=== PATIENT | male | born 1945 | race Two or more races ===

== ENCOUNTER → 2016-12-02 | Outpatient (CLI) | payer MEDICARE ==
[~2016-12-02] VITALS: Ht 170.2 cm; Wt 83.0 kg
[~2016-12-02] MED LIST: AMIO200T44 PO; AMLO-511 PO; BACL10TA PO; CITA40TA14 PO; COLC0.6T69 PO; GABA-531 PO; GEMF600T3 PO; HYDR-308 PO; LISI-662 PO; METO-327 PO; METO25 PO; OMEP20 PO; RANI150T7 PO; SIMV-261 PO; SITA100 PO; WARF2 PO; WARF4TAB6 PO
[2016-12-02 14:45] VITALS: BP 126/53
== END | disposition home or self-care (01) ==
LOC: SRCNTR 14:44
PROVIDERS: ATTEND Internal Medicine Cardiovascular Disease
DX: J44.9 Chronic obstructive pulmonary disease, unspecified (principal); I10 Essential (primary) hypertension; I48.0 Paroxysmal atrial fibrillation; E11.9 Type 2 diabetes mellitus without complications; E78.5 Hyperlipidemia, unspecified; M19.90 Unspecified osteoarthritis, unspecified site
CPT/HCPCS: 85610; G0463

== ENCOUNTER → 2016-12-17 | Outpatient (CLI) | payer MEDICARE ==
[2016-12-17 09:59] VITALS: BP 124/60
== END | disposition home or self-care (01) ==
LOC: SRCNTR 09:57
PROVIDERS: ATTEND Internal Medicine Cardiovascular Disease
DX: I48.91 Unspecified atrial fibrillation (principal)
CPT/HCPCS: 85610; G0463

== ENCOUNTER → 2017-01-01 | Outpatient (CLI) | payer MEDICARE ==
[~2017-01-01] VITALS: Ht 167.6 cm; Wt 87.0 kg
[~2017-01-01] MED LIST changes: -SIMV-261 PO; +SIMV40 PO
[2017-01-01 14:15] VITALS: BP 124/54
== END | disposition home or self-care (01) ==
LOC: SRCNTR 14:10
PROVIDERS: ATTEND Internal Medicine Cardiovascular Disease
DX: I10 Essential (primary) hypertension (principal); E11.9 Type 2 diabetes mellitus without complications; E78.5 Hyperlipidemia, unspecified; I48.0 Paroxysmal atrial fibrillation; M19.90 Unspecified osteoarthritis, unspecified site
CPT/HCPCS: 85610; 93005; G0463

== ENCOUNTER → 2017-01-08 | Outpatient (CLI) | payer MEDICARE ==
[~2017-01-08] VITALS: Ht 165.1 cm; Wt 87.0 kg
[~2017-01-08] MED LIST changes: -WARF4TAB6 PO
[2017-01-08 10:43] VITALS: BP 126/51
== END | disposition home or self-care (01) ==
LOC: SRCNTR 10:34
PROVIDERS: ATTEND Hospitalist
DX: I10 Essential (primary) hypertension (principal); E78.5 Hyperlipidemia, unspecified; R94.5 Abnormal results of liver function studies; I48.2 Chronic atrial fibrillation; I48.91 Unspecified atrial fibrillation; E11.65 Type 2 diabetes mellitus with hyperglycemia; F10.10 Alcohol abuse, uncomplicated; G89.29 Other chronic pain; M54.5 Low back pain
CPT/HCPCS: G0463

== ENCOUNTER → 2017-02-13 | Outpatient (CLI) | payer MEDICARE ==
[~2017-02-13] MED LIST changes: +SIMV-261 PO; -SIMV40 PO
[2017-02-13 15:35] LABS: BASOPHILS # (AUTO) 0.07 K/uL (0.00-0.20); BASOPHILS % (AUTO) 1.2 % (0.0-2.0); EOSINOPHILS % (AUTO) 3.72 % (1.0-6.0); HEMATOCRIT 42.2 % (41-53); HEMOGLOBIN 14.1 g/dL (13.5-17.5); LYMPHOCYTES % (AUTO) 17.7 % (22.0-44.0); MEAN CORPUSCULAR HGB CONC 33.3 G/dL (31.0-37.0); MEAN CORPUSCULAR VOLUME 99 fL (80-100); MONOCYTES # (AUTO) 0.5 K/uL (0.1-1.0); MONOCYTES % (AUTO) 9.6 % (2.0-9.0); NEUTROPHILS # (AUTO) 3.6 K/uL (1.8-7.7); NEUTROPHILS % (AUTO) 67.8 % (40.0-70.0); PLATELET COUNT (AUTO) 136 K/uL (150-450); RED BLOOD CELL COUNT(AUTO) 4.27 MIL/uL (4.50-5.90); RED CELL DISTRIBUTION WIDTH 13.1 % (11.5-14.5); WHITE BLOOD COUNT (AUTO) 5.4 K/uL (4.5-11.0)
[2017-02-13 15:52] LABS: ALANINE AMINOTRANSFERASE 27 U/L (12-78); ALBUMIN 3.7 g/dL (3.4-5.0); ANION GAP 7 mmol/L (8-16); ASPARTATE AMINOTRANSFERASE 21 U/L (15-37); BILIRUBIN,TOTAL 0.3 mg/dL (0.1-1.0); CALCIUM, TOTAL 8.4 mg/dL (8.8-10.5); CARBON DIOXIDE 28 mmol/L (22-29); CHLORIDE 105 mmol/L (98-107); CHOL/HDL RATIO 5.8 (4.2-7.3); CREATININE 1.08 mg/dL (0.60-1.30); GLOMERULAR FILTR. RATE CALC > 60 mL/min (>60); POTASSIUM 5.3 mmol/L (3.5-5.1); SODIUM SERUM 140 mmol/L (136-145); TOTAL PROTEIN, SERUM 7.2 g/dL (6.4-8.2); UREA NITROGEN, BLOOD 17 mg/dL (7-18)
[2017-02-13 16:24] LABS: PROSTATE SPECIFIC ANTIGEN 0.48 ng/mL (0.00-4.00)
[2017-02-14 14:48] LABS: HEPATITIS Bs ANTIGEN SCREEN P Negative (Negative); HEPATITIS C AB SCREEN <0.1 s/co ratio (0.0-0.9)
== END | disposition home or self-care (01) ==
LOC: LABPV 13:30
PROVIDERS: ATTEND Hospitalist
DX: Z12.5 Encounter for screening for malignant neoplasm of prostate (principal); I10 Essential (primary) hypertension; E78.5 Hyperlipidemia, unspecified; R94.5 Abnormal results of liver function studies
CPT/HCPCS: 80074; 82271; 84153

== ENCOUNTER → 2017-02-20 | Outpatient (CLI) | payer MEDICARE ==
[~2017-02-20] VITALS: Ht 167.6 cm; Wt 88.0 kg
[~2017-02-20] MED LIST changes: -SIMV-261 PO; +SIMV40 PO
[2017-02-20 10:50] VITALS: BP 156/62
== END | disposition home or self-care (01) ==
LOC: SRCNTR 10:36
PROVIDERS: ATTEND Hospitalist
DX: E11.65 Type 2 diabetes mellitus with hyperglycemia (principal); I10 Essential (primary) hypertension; M19.90 Unspecified osteoarthritis, unspecified site; E78.5 Hyperlipidemia, unspecified; I48.2 Chronic atrial fibrillation; K21.9 Gastro-esophageal reflux disease without esophagitis; F10.10 Alcohol abuse, uncomplicated; G89.29 Other chronic pain; M54.5 Low back pain; E87.5 Hyperkalemia; Z71.41 Alcohol abuse counseling and surveillance of alcoholic
CPT/HCPCS: G0463

== ENCOUNTER → 2017-02-24 | Outpatient (CLI) | payer MEDICARE ==
[~2017-02-24] VITALS: Ht 167.6 cm; Wt 89.5 kg
[~2017-02-24] MED LIST changes: +SIMV-261 PO; -SIMV40 PO
[2017-02-24 14:47] VITALS: BP 128/58
== END | disposition home or self-care (01) ==
LOC: SRCNTR 14:39
PROVIDERS: ATTEND Internal Medicine Cardiovascular Disease
DX: E11.9 Type 2 diabetes mellitus without complications (principal); I10 Essential (primary) hypertension; E78.5 Hyperlipidemia, unspecified; I48.0 Paroxysmal atrial fibrillation; M19.90 Unspecified osteoarthritis, unspecified site
CPT/HCPCS: 85610; G0463

== ENCOUNTER → 2017-02-27 | Outpatient (CLI) | payer MEDICARE ==
[~2017-02-27] MED LIST changes: -SIMV-261 PO; +SIMV40 PO
[2017-02-27 16:03] LABS: ANION GAP 8 mmol/L (8-16); CALCIUM, TOTAL 8.6 mg/dL (8.8-10.5); CARBON DIOXIDE 27 mmol/L (22-29); CHLORIDE 105 mmol/L (98-107); CREATININE 0.98 mg/dL (0.60-1.30); GLOMERULAR FILTR. RATE CALC > 60 mL/min (>60); POTASSIUM 5.1 mmol/L (3.5-5.1); SODIUM SERUM 140 mmol/L (136-145); UREA NITROGEN, BLOOD 17 mg/dL (7-18)
== END | disposition home or self-care (01) ==
LOC: LABPV 14:20
PROVIDERS: ATTEND Hospitalist
DX: E87.5 Hyperkalemia (principal)
CPT/HCPCS: 83735

== ENCOUNTER → 2017-03-09 | Outpatient (CLI) | payer MEDICARE ==
[~2017-03-09] VITALS: Ht 167.6 cm; Wt 89.2 kg
[~2017-03-09] MED LIST changes: +SIMV-261 PO; -SIMV40 PO
[2017-03-09 12:15] VITALS: BP 161/66
== END | disposition home or self-care (01) ==
LOC: SRCNTR 12:12
PROVIDERS: ATTEND Hospitalist
DX: E11.65 Type 2 diabetes mellitus with hyperglycemia (principal); I10 Essential (primary) hypertension; I48.2 Chronic atrial fibrillation; E78.5 Hyperlipidemia, unspecified; M19.90 Unspecified osteoarthritis, unspecified site; G89.29 Other chronic pain; M54.5 Low back pain; K21.9 Gastro-esophageal reflux disease without esophagitis; F10.10 Alcohol abuse, uncomplicated
CPT/HCPCS: G0463

== ENCOUNTER → 2017-03-31 | Outpatient (CLI) | payer MEDICARE ==
[~2017-03-31] VITALS: Ht 167.6 cm; Wt 89.0 kg
[2017-03-31 14:15] VITALS: BP 135/53
== END | disposition home or self-care (01) ==
LOC: SRCNTR 14:10
PROVIDERS: ATTEND Internal Medicine Cardiovascular Disease
DX: E11.9 Type 2 diabetes mellitus without complications (principal); I10 Essential (primary) hypertension; E78.5 Hyperlipidemia, unspecified; I48.0 Paroxysmal atrial fibrillation; M19.90 Unspecified osteoarthritis, unspecified site; Z79.01 Long term (current) use of anticoagulants
CPT/HCPCS: 85610; G0463

== ENCOUNTER → 2017-04-30 | Outpatient (CLI) | payer MEDICARE ==
[~2017-04-30] VITALS: Ht 167.6 cm; Wt 86.0 kg
[2017-04-30 14:07] VITALS: BP 109/49
== END | disposition home or self-care (01) ==
LOC: SRCNTR 14:06
PROVIDERS: ATTEND Internal Medicine Cardiovascular Disease
DX: I10 Essential (primary) hypertension (principal); E11.9 Type 2 diabetes mellitus without complications; E78.5 Hyperlipidemia, unspecified; I48.0 Paroxysmal atrial fibrillation; M19.90 Unspecified osteoarthritis, unspecified site; Z79.01 Long term (current) use of anticoagulants
CPT/HCPCS: G0463

== ENCOUNTER → 2017-06-02 | Outpatient (CLI) | payer MEDICARE ==
[~2017-06-02] VITALS: Ht 167.6 cm; Wt 87.5 kg
[2017-06-02 15:22] VITALS: BP 145/70
== END | disposition home or self-care (01) ==
LOC: SRCNTR 14:29
PROVIDERS: ATTEND Internal Medicine Cardiovascular Disease
DX: I10 Essential (primary) hypertension (principal); E11.9 Type 2 diabetes mellitus without complications; E78.5 Hyperlipidemia, unspecified; M19.90 Unspecified osteoarthritis, unspecified site; I48.0 Paroxysmal atrial fibrillation
CPT/HCPCS: G0463

== ENCOUNTER → 2017-06-08 | Outpatient (CLI) | payer MEDICARE ==
[2017-06-08 13:38] LABS: HEMATOCRIT 41.3 % (41-53); HEMOGLOBIN 13.8 g/dL (13.5-17.5); MEAN CORPUSCULAR HEMOGLOBIN 33.3 pg (26.0-34.0); MEAN CORPUSCULAR HGB CONC 33.5 G/dL (31.0-37.0); MEAN CORPUSCULAR VOLUME 99 fL (80-100); RED BLOOD CELL COUNT(AUTO) 4.15 MIL/uL (4.50-5.90); RED CELL DISTRIBUTION WIDTH 13.9 % (11.5-14.5); WHITE BLOOD COUNT (AUTO) 6.6 K/uL (4.5-11.0)
[2017-06-08 13:39] LABS: BASOPHILS % (AUTO) 0.7 % (0.0-2.0); EOSINOPHILS % (AUTO) 3.3 % (1.0-6.0); LYMPHOCYTES # (AUTO) 1.1 K/uL (1.0-4.8); LYMPHOCYTES % (AUTO) 17.3 % (22.0-44.0); MONOCYTES # (AUTO) 0.7 K/uL (0.1-1.0); MONOCYTES % (AUTO) 10.9 % (2.0-9.0); NEUTROPHILS # (AUTO) 4.5 K/uL (1.8-7.7); NEUTROPHILS % (AUTO) 67.8 % (40.0-70.0); PLATELET COUNT (AUTO) 140 K/uL (150-450)
[2017-06-08 13:45] LABS: HEMOGLOBIN A1C 5.8 % (4.5-6.2)
[2017-06-08 13:59] LABS: ALANINE AMINOTRANSFERASE 31 U/L (12-78); ALBUMIN 3.9 g/dL (3.4-5.0); ANION GAP 9 mmol/L (8-16); ASPARTATE AMINOTRANSFERASE 26 U/L (15-37); BILIRUBIN,TOTAL 0.4 mg/dL (0.1-1.0); CALCIUM, TOTAL 8.6 mg/dL (8.8-10.5); CARBON DIOXIDE 24 mmol/L (22-29); CHLORIDE 103 mmol/L (98-107); CREATININE 1.04 mg/dL (0.60-1.30); GLOMERULAR FILTR. RATE CALC > 60 mL/min (>60); POTASSIUM 5.2 mmol/L (3.5-5.1); SODIUM SERUM 136 mmol/L (136-145); TOTAL PROTEIN, SERUM 7.1 g/dL (6.4-8.2); UREA NITROGEN, BLOOD 22 mg/dL (7-18)
== END | disposition home or self-care (01) ==
LOC: LABPV 10:58
PROVIDERS: ATTEND Hospitalist
DX: E11.9 Type 2 diabetes mellitus without complications (principal); I10 Essential (primary) hypertension
CPT/HCPCS: 83036

== ENCOUNTER → 2017-06-11 | Outpatient (CLI) | payer MEDICARE ==
[~2017-06-11] VITALS: Ht 167.6 cm; Wt 87.0 kg
[2017-06-11 12:32] VITALS: BP 145/61
[2017-06-11 13:41] LABS: GLUCOSE,POINT OF CARE 122 MG/DL (70-110)
== END | disposition home or self-care (01) ==
LOC: SRCNTR 12:21
PROVIDERS: ATTEND Hospitalist
DX: E11.9 Type 2 diabetes mellitus without complications (principal); I48.2 Chronic atrial fibrillation; I10 Essential (primary) hypertension; E78.5 Hyperlipidemia, unspecified; K21.9 Gastro-esophageal reflux disease without esophagitis; G89.29 Other chronic pain; M54.5 Low back pain; M19.90 Unspecified osteoarthritis, unspecified site; F10.10 Alcohol abuse, uncomplicated
CPT/HCPCS: 82962

== ENCOUNTER → 2017-07-02 | Outpatient (CLI) | payer MEDICARE ==
[~2017-07-02] VITALS: Ht 167.6 cm; Wt 85.0 kg
[~2017-07-02] MED LIST changes: +COLC0.6T67 PO; -COLC0.6T69 PO; -METO-327 PO; +METO-416 PO
[2017-07-02 14:35] VITALS: BP 122/50
== END | disposition home or self-care (01) ==
LOC: SRCNTR 14:04
PROVIDERS: ATTEND Internal Medicine Cardiovascular Disease
DX: E11.9 Type 2 diabetes mellitus without complications (principal); E78.5 Hyperlipidemia, unspecified; I10 Essential (primary) hypertension; I48.0 Paroxysmal atrial fibrillation; M19.90 Unspecified osteoarthritis, unspecified site; Z79.01 Long term (current) use of anticoagulants
CPT/HCPCS: 93005; G0463

== ENCOUNTER → 2017-08-11 | Outpatient (CLI) | payer MEDICARE ==
[~2017-08-11] VITALS: Ht 170.2 cm; Wt 86.0 kg
[~2017-08-11] MED LIST changes: +INFLUENZA VIRUS VACCINE QVS 2017-18 (3YR+)/PF 60 MCG/0.5 ML SYRINGE IM ONE
[2017-08-11 14:56] VITALS: BP 106/46
== END | disposition home or self-care (01) ==
LOC: SRCNTR 14:54
PROVIDERS: ATTEND Internal Medicine Cardiovascular Disease
DX: I48.0 Paroxysmal atrial fibrillation (principal); I10 Essential (primary) hypertension; E11.9 Type 2 diabetes mellitus without complications; E78.5 Hyperlipidemia, unspecified; M19.90 Unspecified osteoarthritis, unspecified site; Z79.01 Long term (current) use of anticoagulants
CPT/HCPCS: 90471; G0463

== ENCOUNTER → 2017-09-03 | Outpatient (CLI) | payer MEDICARE ==
[~2017-09-03] VITALS: Ht 167.6 cm; Wt 85.5 kg
[~2017-09-03] MED LIST changes: -INFLUENZA VIRUS VACCINE QVS 2017-18 (3YR+)/PF 60 MCG/0.5 ML SYRINGE IM ONE
[2017-09-03 12:03] VITALS: BP 115/53
[2017-09-03 13:07] LABS: GLUCOMETER DEV NAME(LOC) SHC; GLUCOSE,POINT OF CARE 124 MG/DL (70-110)
== END | disposition home or self-care (01) ==
LOC: SRCNTR 11:51
PROVIDERS: ATTEND Hospitalist
DX: E11.65 Type 2 diabetes mellitus with hyperglycemia (principal); E78.5 Hyperlipidemia, unspecified; G89.29 Other chronic pain; I10 Essential (primary) hypertension; I48.2 Chronic atrial fibrillation; M10.9 Gout, unspecified; Z79.01 Long term (current) use of anticoagulants; Z90.89 Acquired absence of other organs
CPT/HCPCS: 82962; G0463

== ENCOUNTER → 2017-09-22 | Outpatient (CLI) | payer MEDICARE ==
[~2017-09-22] VITALS: Ht 167.6 cm; Wt 86.0 kg
[2017-09-22 15:12] VITALS: BP 107/65
== END | disposition home or self-care (01) ==
LOC: SRCNTR 15:01
PROVIDERS: ATTEND Internal Medicine Cardiovascular Disease
DX: I10 Essential (primary) hypertension (principal); E11.9 Type 2 diabetes mellitus without complications; E78.5 Hyperlipidemia, unspecified; I48.0 Paroxysmal atrial fibrillation; Z79.01 Long term (current) use of anticoagulants
CPT/HCPCS: G0463

== ENCOUNTER → 2017-10-27 | Outpatient (CLI) | payer MEDICARE ==
[~2017-10-27] VITALS: Ht 167.6 cm; Wt 85.0 kg
[2017-10-27 14:57] VITALS: BP 131/55
== END | disposition home or self-care (01) ==
LOC: SRCNTR 14:45
PROVIDERS: ATTEND Internal Medicine Cardiovascular Disease
DX: I10 Essential (primary) hypertension (principal); I48.0 Paroxysmal atrial fibrillation; E78.5 Hyperlipidemia, unspecified; E11.9 Type 2 diabetes mellitus without complications; M19.90 Unspecified osteoarthritis, unspecified site; Z79.01 Long term (current) use of anticoagulants
CPT/HCPCS: 85610; G0463

== ENCOUNTER → 2017-11-11 | Outpatient (CLI) | payer MEDICARE ==
[~2017-11-11] VITALS: Ht 167.6 cm; Wt 88.0 kg
[2017-11-11 09:14] VITALS: BP 134/64
== END | disposition home or self-care (01) ==
LOC: SRCNTR 09:03
PROVIDERS: ATTEND Internal Medicine Cardiovascular Disease
DX: I48.91 Unspecified atrial fibrillation (principal)
CPT/HCPCS: 85610; G0463

== ENCOUNTER → 2017-12-01 | Outpatient (CLI) | payer MEDICARE ==
[~2017-12-01] VITALS: Ht 167.6 cm; Wt 86.0 kg
[2017-12-01 15:00] VITALS: BP 122/64
== END | disposition home or self-care (01) ==
LOC: SRCNTR 14:38
PROVIDERS: ATTEND Internal Medicine Cardiovascular Disease
DX: I10 Essential (primary) hypertension (principal); I48.0 Paroxysmal atrial fibrillation; E78.5 Hyperlipidemia, unspecified; E11.9 Type 2 diabetes mellitus without complications; M19.90 Unspecified osteoarthritis, unspecified site; Z79.01 Long term (current) use of anticoagulants
CPT/HCPCS: 85610; G0463

== ENCOUNTER → 2017-12-10 | Outpatient (CLI) | payer MEDICARE ==
[~2017-12-10] VITALS: Ht 167.6 cm; Wt 89.0 kg
[2017-12-10 11:55] VITALS: BP 121/52
[2017-12-10 15:52] LABS: GLUCOMETER DEV NAME(LOC) SHC; GLUCOSE,POINT OF CARE 140 MG/DL (70-110)
== END | disposition home or self-care (01) ==
LOC: SRCNTR 11:27
PROVIDERS: ATTEND Hospitalist
DX: I48.2 Chronic atrial fibrillation (principal); E11.9 Type 2 diabetes mellitus without complications; I10 Essential (primary) hypertension; K21.9 Gastro-esophageal reflux disease without esophagitis; G89.29 Other chronic pain; M54.5 Low back pain
CPT/HCPCS: 82962; G0463

== ENCOUNTER → 2018-03-18 | Outpatient (CLI) | payer MEDICARE ==
[~2018-03-18] VITALS: Ht 167.6 cm; Wt 89.0 kg
[2018-03-18 14:53] VITALS: BP 124/62
== END | disposition home or self-care (01) ==
LOC: SRCNTR 14:40
PROVIDERS: ATTEND Internal Medicine Cardiovascular Disease
DX: I10 Essential (primary) hypertension (principal); E78.5 Hyperlipidemia, unspecified; I48.0 Paroxysmal atrial fibrillation; M19.90 Unspecified osteoarthritis, unspecified site; E11.65 Type 2 diabetes mellitus with hyperglycemia; Z79.01 Long term (current) use of anticoagulants
CPT/HCPCS: 85610; G0463

== ENCOUNTER → 2018-07-13 | Outpatient (CLI) | payer MEDICARE ==
[~2018-07-13] VITALS: Ht 167.6 cm; Wt 87.5 kg
[~2018-07-13] MED LIST changes: -GEMF600T3 PO; +GEMF600T5 PO
[2018-07-13 14:41] VITALS: BP 142/70
== END | disposition home or self-care (01) ==
LOC: SRCNTR 14:26
PROVIDERS: ATTEND Internal Medicine Cardiovascular Disease
DX: I48.0 Paroxysmal atrial fibrillation (principal); E11.9 Type 2 diabetes mellitus without complications; I10 Essential (primary) hypertension; M19.90 Unspecified osteoarthritis, unspecified site; M54.5 Low back pain; E78.00 Pure hypercholesterolemia, unspecified
CPT/HCPCS: 85610; G0463

== ENCOUNTER → 2018-07-30 | Outpatient (CLI) | payer MEDICARE ==
[~2018-07-30] VITALS: Ht 167.6 cm; Wt 87.8 kg
[2018-07-30 13:34] VITALS: BP 131/53
== END | disposition home or self-care (01) ==
LOC: SRCNTR 11:00
PROVIDERS: ATTEND Internal Medicine Cardiovascular Disease
DX: I48.91 Unspecified atrial fibrillation (principal)
CPT/HCPCS: 82270; G0463

== ENCOUNTER → 2018-08-12 | Outpatient (CLI) | payer MEDICARE ==
[~2018-08-12] VITALS: Ht 167.6 cm; Wt 84.5 kg
[2018-08-12 14:54] VITALS: BP 110/46
== END | disposition home or self-care (01) ==
LOC: SRCNTR 14:39
PROVIDERS: ATTEND Internal Medicine Cardiovascular Disease
DX: Z23 Encounter for immunization (principal); I48.0 Paroxysmal atrial fibrillation; E11.9 Type 2 diabetes mellitus without complications; E78.5 Hyperlipidemia, unspecified; M19.90 Unspecified osteoarthritis, unspecified site; M54.5 Low back pain
CPT/HCPCS: 85610; 90471; 90686; G0463; 96372

== ENCOUNTER → 2018-08-23 | Outpatient (CLI) | payer MEDICARE ==
[2018-08-23 14:37] LABS: BASOPHILS % (AUTO) 1.4 % (0.0-2.0); EOSINOPHILS % (AUTO) 1.4 % (1.0-6.0); HEMATOCRIT 42.7 % (41-53); HEMOGLOBIN 14.4 g/dL (13.5-17.5); LYMPHOCYTES # (AUTO) 0.8 K/uL (1.0-4.8); LYMPHOCYTES % (AUTO) 14.3 % (22.0-44.0); MEAN CORPUSCULAR HEMOGLOBIN 33.1 pg (26.0-34.0); MEAN CORPUSCULAR HGB CONC 33.8 G/dL (31.0-37.0); MEAN CORPUSCULAR VOLUME 98 fL (80-100); MONOCYTES # (AUTO) 0.5 K/uL (0.1-1.0); MONOCYTES % (AUTO) 8.7 % (2.0-9.0); NEUTROPHILS # (AUTO) 4.2 K/uL (1.8-7.7); NEUTROPHILS % (AUTO) 74.2 % (40.0-70.0); PLATELET COUNT (AUTO) 130 K/uL (150-450); RED BLOOD CELL COUNT(AUTO) 4.37 MIL/uL (4.50-5.90); RED CELL DISTRIBUTION WIDTH 14.3 % (11.5-14.5)
[2018-08-23 14:49] LABS: HEMOGLOBIN A1C 6.5 % (4.5-6.2)
[2018-08-23 14:59] LABS: PROSTATE SPECIFIC ANTIGEN 0.53 ng/mL (0.00-4.00)
[2018-08-23 15:03] LABS: ALANINE AMINOTRANSFERASE 23 U/L (12-78); ALBUMIN 3.4 g/dL (3.4-5.0); ALKALINE PHOSPHATASE 74 U/L (46-116); ANION GAP 8 mmol/L (8-16); ASPARTATE AMINOTRANSFERASE 21 U/L (15-37); BILIRUBIN,TOTAL 0.3 mg/dL (0.1-1.0); CALCIUM, TOTAL 8.6 mg/dL (8.8-10.5); CARBON DIOXIDE 25 mmol/L (22-29); CHLORIDE 104 mmol/L (98-107); CHOL/HDL RATIO 3.9 (4.2-7.3); CHOLESTEROL 151 mg/dL (131-200); CREATININE 0.84 mg/dL (0.60-1.30); GLUCOSE,RANDOM 129 mg/dL (70-110); HDL CHOLESTEROL 39 mg/dL (40-60); LDL CHOL (CALC.) 82 mg/dL (0-130); POTASSIUM 4.4 mmol/L (3.5-5.1); SODIUM SERUM 137 mmol/L (136-145); THYROID STIMULATING HORMONE 2.35 uIU/mL (0.36-3.74); TOTAL PROTEIN, SERUM 7.1 g/dL (6.4-8.2); TRIGLYCERIDES 149 mg/dL (15-150); UREA NITROGEN, BLOOD 16 mg/dL (7-18)
[2018-08-23 15:05] LABS: GLOMERULAR FILTR. RATE CALC > 60 mL/min (>60)
== END | disposition home or self-care (01) ==
LOC: LABPV 13:03
PROVIDERS: ATTEND Internal Medicine Cardiovascular Disease
DX: Z12.5 Encounter for screening for malignant neoplasm of prostate (principal); E78.5 Hyperlipidemia, unspecified; I10 Essential (primary) hypertension; E11.9 Type 2 diabetes mellitus without complications; I48.0 Paroxysmal atrial fibrillation; K21.9 Gastro-esophageal reflux disease without esophagitis
CPT/HCPCS: 36415; 80053; 80061; 83036; 84443; 85025; G0103; 84153

== ENCOUNTER → 2018-09-02 | Outpatient (CLI) | payer MEDICARE ==
[~2018-09-02] VITALS: Ht 167.6 cm; Wt 86.5 kg
[2018-09-02 13:12] VITALS: BP 128/47
== END | disposition home or self-care (01) ==
LOC: SRCNTR 12:18
PROVIDERS: ATTEND Hospitalist
DX: I48.2 Chronic atrial fibrillation (principal); E11.9 Type 2 diabetes mellitus without complications; I10 Essential (primary) hypertension; E78.5 Hyperlipidemia, unspecified; K21.9 Gastro-esophageal reflux disease without esophagitis; M54.5 Low back pain; G89.4 Chronic pain syndrome; M16.11 Unilateral primary osteoarthritis, right hip; F10.10 Alcohol abuse, uncomplicated
CPT/HCPCS: G0463

== ENCOUNTER → 2018-09-14 | Outpatient (CLI) | payer MEDICARE ==
[~2018-09-14] VITALS: Ht 167.6 cm; Wt 86.2 kg
[2018-09-14 15:00] VITALS: BP 130/50
== END | disposition home or self-care (01) ==
LOC: SRCNTR 14:57
PROVIDERS: ATTEND Internal Medicine Cardiovascular Disease
DX: I48.0 Paroxysmal atrial fibrillation (principal); R42 Dizziness and giddiness; M54.5 Low back pain; I10 Essential (primary) hypertension; E78.5 Hyperlipidemia, unspecified; M19.90 Unspecified osteoarthritis, unspecified site; E11.9 Type 2 diabetes mellitus without complications
CPT/HCPCS: 85610; G0463